=== PATIENT | female | born 1995 | race Caucasian/White ===

== ENCOUNTER 2016-09-04 19:42 | Emergency (ER) | payer MEDICAID, OTHER ==
[~2016-09-04] VITALS: Ht 162.6 cm; Wt 83.0 kg
[~2016-09-04 19:42] MED LIST: FER325 PO; PRENAT PO
[2016-09-04 19:51] VITALS: Ht 162.6 cm; Wt 83.0 kg
[2016-09-04] MEDS ORDERED: SOD CHLORIDE 0.9% 1,000 ML IV STA (20:28)
[2016-09-04] MEDS ORDERED: ONDANSETRON 4 MG INJ IV STA (20:28)
[2016-09-04 21:26] LABS: ALBUMIN 4.7 g/dl (3.3-4.9); POTASSIUM 3.9 mmol/L (3.5-5.1)
[2016-09-04 21:29] LABS: ALBUMIN/GLOBULIN RATIO 1.14; BILIRUBIN,INDIRECT 0.6 mg/dl (0-1.1); BILIRUBIN,TOTAL 0.6 mg/dl (0.2-1.3); CREATININE 0.52 mg/dl (0.44-1.00); TOTAL PROTEIN 8.8 g/dl (6.1-8.1)
[2016-09-04 21:30] LABS: CALCIUM 9.9 mg/dl (8.4-10.2)
[2016-09-04 21:38] LABS: BASOPHILS % 0.4 % (0.0-2.0); EOSINOPHILS % 0.3 % (0.0-7.0); HEMATOCRIT 43.1 % (37.0-47.0); HEMOGLOBIN 15.2 g/dl (12.0-16.0); LYMPHOCYTES # 1.6 10^3/ul (0.8-2.9); LYMPHOCYTES % 16.6 % (15.0-51.0); MEAN CORPUSCULAR HGB CONC 35.3 g/dl (32.0-37.0); MEAN CORPUSCULAR VOLUME 87.8 fl (82.0-101.0); MEAN PLATELET VOLUME 9.9 fl (7.4-10.4); MONOCYTE # 0.2 10^3/ul (0.3-0.9); MONOCYTES % 2.4 % (0.0-11.0); NEUTROPHIL # 7.7 10^3/ul (1.6-7.5); NEUTROPHILS % 80.3 % (39.0-77.0); PLATELET COUNT 260 10^3/UL (140-440); RED BLOOD COUNT 4.91 10^6/ul (4.20-5.40); RED CELL DISTRIBUTION WIDTH 12.5 % (11.5-14.5); UNCORRECTED WBC 9.5 10^3/ul (4.8-10.8); WHITE BLOOD COUNT 9.5 10^3/ul (4.8-10.8)
[2016-09-04 21:39] LABS: CONDITION 1
--- NOTE | 2016-09-04 21:48 | RADRPT ---
PROCEDURE: OB Ultrasound. CLINICAL INDICATION: Positive test. Vomiting. TECHNIQUE: Ultrasound of the pelvis was performed with transabdominal sonography in the axial and sagittal planes. COMPARISON: No prior study is available for comparison. FINDINGS: There is a single intrauterine gestational sac. pole and yolk sac are present. There is heart motion. heart rate is 152 beats per minute. [place]-rump length is 3.96 cm. Mean sac diameter is 3.86 cm. Menstrual age by ultrasound dates is 10 weeks 1 day. This indicates an expected date of delivery of 04/01/2017. The ovaries are not visualized. There is no other pelvic mass or free fluid. IMPRESSION: 1. Single live intrauterine gestation of 10 weeks 1 day menstrual age by ultrasound dates. 2. Expected date of delivery is 04/01/2017. RPTAT: QQ .Jamaal Castano MD, Date Time Electronically viewed and signed by .Jamaal Castano MD, on 09/04/2016 21:48 .R/
--- NOTE | 2016-09-04 21:51 | ERD ---
ER Documentation Chief Complaint Date/Time DATE: 09/04/16 TIME: 21:46 Chief Complaint n/v for past 2 days is 3 months denies any pain HPI 20-year-old female who presents to emergency department today complaining of nausea and vomiting throughout her but has been worse for the past day. Patient states she has tried Pedialyte and has been unable to keep fluid down. States she had been given Zofran by her doctor and took her last one yesterday. Patient denies any abdominal pain, fevers or chills. Denies any history of surgery. ROS All systems reviewed and are negative except as per history of present illness. Medications Home Meds Active Scripts Metoclopramide* (Reglan*) 10 Mg Tablet, 10 MG PO Q6 Y for NAUSEA AND/OR VOMITING , #20 TAB Prov:CIERRA MATUTE PA-C 09/04/16 Ondansetron Hcl* (Zofran*) 4 Mg Tablet, 4 MG PO Q6H for NAUSEA AND/OR VOMITING, #30 TAB Prov:CIERRA MATUTE PA-C 09/04/16 Reported Medications Ferrous Sulfate* (Ferrous Sulfate*) 325 Mg Tabec, 325 MG PO DAILY, TAB 12/11/15 Multivit/Min/Fol Ac/Iron/Pren* ( S*) 1 Tab Tab, 1 TAB PO DAILY, TAB 12/11/15 Allergies Allergies: Coded Allergies: fish derived (Verified Allergy, Severe, 01/09/16) THROAT CLOSES, HIVES No Known Drug Allergies (Verified Allergy, Unknown, 01/09/16) PMhx/Soc Medical and Surgical Hx: pt denies Medical Hx, pt denies Surgical Hx Hx Alcohol Use: No Hx Substance Use: No Hx Tobacco Use: No Smoking Status: Never smoker Physical Exam Vitals Vital Signs Date Time Temp Pulse Resp B/P Pulse Ox O2 Delivery O2 Flow Rate FiO2 09/04/16 19:51 98.6 111 18 158/82 98 Physical Exam Const: No acute distress Head: Atraumatic Eyes: Normal Conjunctiva ENT: Normal External Ears, Nose and Mouth. Neck: Full range of motion..~ No meningismus. Resp: Clear to auscultation bilaterally Cardio: Regular rate and rhythm, no murmurs Abd: Soft, non tender, non distended. Normal bowel sounds. Skin: No petechiae or rashes Back: No midline or flank tenderness Ext: No cyanosis, or edema Neur: Awake and alert Psych: Normal Mood and Affect Result Diagram: 09/04/16204909/04/162049 Results 24 hrs Laboratory Tests Test 09/04/16 20:50 09/04/16 21:45 Alanine Aminotransferase (ALT/SGPT) 18IU/L Albumin 4.7g/dl Albumin/Globulin Ratio 1.14 Alkaline Phosphatase 94IU/L Anion Gap 20 Aspartate Amino Transf (AST/SGOT) 20IU/L Basophils # 0.010^3/ul Basophils % 0.4% Beta HCG, Quantitative 05211.0mIU/ml Blood Urea Nitrogen 10mg/dl Calcium Level 9.9mg/dl Carbon Dioxide Level 24mmol/L Chloride Level 102mmol/L Creatinine 0.52mg/dl Direct Bilirubin 0.00mg/dl Eosinophils # 0.010^3/ul Eosinophils % 0.3% Globulin 4.10g/dl Glucose Level 94mg/dl Hematocrit 43.1% Hemoglobin 15.2g/dl Indirect Bilirubin 0.6mg/dl Lymphocytes # 1.610^3/ul Lymphocytes % 16.6% Mean Corpuscular Hemoglobin 31.0pg Mean Corpuscular Hemoglobin Concent 35.3g/dl Mean Corpuscular Volume 87.8fl Mean Platelet Volume 9.9fl Monocytes # 0.210^3/ul Monocytes % 2.4% Neutrophils # 7.710^3/ul Neutrophils % 80.3% Nucleated Red Blood Cells # 0.010^3/ul Nucleated Red Blood Cells % 0.0/100WBC Platelet Count 30058^3/UL Potassium Level 3.9mmol/L Red Blood Count 4.9110^6/ul Red Cell Distribution Width 12.5% Sodium Level 142mmol/L Total Bilirubin 0.6mg/dl Total Protein 8.8g/dl White Blood Count 9.510^3/ul Urine Bacteria FEW Urine Bilirubin 1+ Urine Clarity SLIGHTLY CLOUDY Urine Color YELLOW Urine Glucose NEGATIVE% Urine Hemoglobin NEGATIVE Urine Ictotest NEGATIVE Urine Ketones 3+ Urine Leukocyte Esterase NEGATIVE Urine Microscopic RBC 0-2/HPF Urine Microscopic WBC 0-2/HPF Urine Mucus MODERATE Urine Nitrite NEGATIVE Urine Specific [place] >=1.030 Urine Squamous Epithelial Cells FEW Urine Total Protein 1+ Urine Urobilinogen 0.2 E.U./dL Urine pH 6.0 Current Medications Medications (Trade) Dose Ordered Sig/Alicia Route PRN Reason Start Time Stop Time Status Last Admin Dose Admin Sodium Chloride (NS) 1,000 ml @ 1,000 mls/hr Q1H STAT IV 09/04/16 20:28 09/04/16 21:27 DC 09/04/16 21:07 Ondansetron HCl (Zofran Inj) 4 mg ONCE STAT IV 09/04/16 20:28 09/04/16 20:33 DC 09/04/16 20:48 Patient: ANGELICA LYON : 1995 Age: 21 Sex: F MR #: [id number] DOS: 09/04/16 0000 Ordering MD: CIERRA MATUTE PA-C Location: [facility] Room/Bed: PROCEDURE: OB Ultrasound. CLINICAL INDICATION: Positive test. Vomiting. TECHNIQUE: Ultrasound of the pelvis was performed with transabdominal sonography in the axial and sagittal planes. COMPARISON: No prior study is available for comparison. FINDINGS: There is a single intrauterine gestational sac. pole and yolk sac are present. There is heart motion. heart rate is 152 beats per minute. [place]-rump length is 3.96 cm. Mean sac diameter is 3.86 cm. Menstrual age by ultrasound dates is 10 weeks 1 day. This indicates an expected date of delivery of 04/01/2017. The ovaries are not visualized. There is no other pelvic mass or free fluid. IMPRESSION: 1. Single live intrauterine gestation of 10 weeks 1 day menstrual age by ultrasound dates. 2. Expected date of delivery is 04/01/2017. RPTAT: QQ .Jamaal Castano MD, MD Date Time Electronically viewed and signed by .Jamaal Castano MD, on 09/04/2016 21:48 .R/ CC: CIERRA MATUTE PA-C Procedures/[facility] This is a 21-year-old female who presents to the emergency department today complaining of persistent nausea and vomiting throughout her but that became worse yesterday. Patient had no abdominal pain on physical exam however given that the patient stated she was 3 months denies obtaining a complete OB workup. Laboratory work shows no auditory blood cell count. She is not anemic. Platelets are within normal limits. Electrolytes are within normal limits. Liver function is within normal limits. UA is negative for infection Beta Quant hCG 03641.0 RH status O+ Ultrasound shows a single live intrauterine gestation at 10 weeks and 1 day. heart rate is 152 bpm. There is a pole and yolk sac. There is no pelvic masses or free fluid. Patient is given a liter of fluids here in the emergency department as well as Zofran. And patient reported feeling significantly better and had not had any nausea since receiving the Zofran IV. We'll give the patient a prescription for both Zofran and Reglan if Zofran continued to not work for her at home. I do not feel the patient requires admission at this time and she was able to 3 cups of water while she was here in the emergency department. Patient's symptoms at this time is consistent with vomiting during . Lower suspicion for hyperemesis gravidarum. Patient has no abdominal pain on physical exam and low suspicion for any acute surgical abdomen. I do not feel that she requires further imaging or workup. Patient was asking to leave prior to receiving almost all of her fluids stating she felt much better. Patient was instructed to follow-up with Dr. Vann At this time the patient is stable for discharge and outpatient management. Patient should follow up with their PCP in the next 1-2 days. They may return to the emergency department sooner for any persistent or worsening of symptoms. Patient understood and agreed with the plan. Departure Diagnosis: Primary Impression: Vomiting during Condition: CIERRA Guillory PA-C Sep 04, 2016 21:51
[2016-09-04 22:00] LABS: ADD UMIC YES; URINE BILIRUBIN (Dip) 1+ (NEGATIVE); URINE BLOOD (Dip) NEGATIVE (NEGATIVE); URINE COLOR YELLOW (YELLOW); URINE GLUCOSE (Dip) NEGATIVE (NEGATIVE); URINE KETONES (Dip) 3+ (NEGATIVE); URINE LEUKOCYTE ESTERASE (Dip) NEGATIVE (NEGATIVE); URINE NITRITE (Dip) NEGATIVE (NEGATIVE); URINE TOTAL PROTEIN (Dip) 1+ (NEGATIVE); URINE UROBILINOGEN (Dip) 0.2 E.U./dL (0.1-1.0)
[2016-09-04 22:21] LABS: BACTERIA,URINE FEW; ICTOTEST NEGATIVE (NEGATIVE); MUCUS,URINE MODERATE; SQUAMOUS EPITHELIAL CELL,UR FEW; URINE RBCS 0-2 /HPF (0)
[2016-09-04] MEDS ORDERED: ONDA4TAB8 PO (23:05)
[2016-09-04] MEDS ORDERED: METO10TA92 PO (23:06)
[2016-09-04 23:30] VITALS: BP 126/72; PULSE 85; RESP 18; TEMP 96.3
== END 2016-09-04 23:30 | disposition home or self-care (01) ==
LOC: FTE 19:42
DX: O21.9 Vomiting of pregnancy, unspecified (principal); Z3A.10 10 weeks gestation of pregnancy
CPT/HCPCS: 76805; 80053; 81001; 84702; 85025; 86900; 86901; J2405; J7030; 36415; 81003; 96374

== ENCOUNTER 2016-11-18 22:15 | Outpatient (CLI) | payer OTHER ==
[~2016-11-18] VITALS: Ht 165.1 cm; Wt 86.8 kg
[~2016-11-18 22:15] MED LIST changes: +METO10TA92 PO; +ONDA4TAB8 PO
[2016-11-18 22:21] VITALS: Ht 165.1 cm; Wt 86.8 kg
[2016-11-18 22:22] VITALS: BP 115/71; PULSE 98; RESP 18
--- NOTE | 2016-11-18 22:48 | PN ---
Date/Time of Note Date/Time of Note DATE: 11/18/16 TIME: 22:43 OB Subjective Subjective Subjective 21 yo P1 @ 21 wks c/o constant lower abdominal cramping and does not feel baby moving OB Objective Objective Objective 115/71, 98, 18 Abdomen- gravid, n/t FH- pos Abdomen: WNL OB Assessment/Plan Other Assessment: patient likely has round ligament pain Other plan: sono to assess viability, fluid, and cervical length If all nml, d/c home reassured that movements are not always regular before 28 wks tylenol for presumed round ligament pain PORSHA REYNAGA MD Nov 18, 2016 22:48
[2016-11-18] MEDS ORDERED: ACETAMINOPHEN 500 MG TAB PO ONE (23:03)
[2016-11-18] MEDS ORDERED: LACTATED RINGER'S 1,000 ML IV STA (23:25)
--- NOTE | 2016-11-18 23:43 | RADRPT ---
PROCEDURE: Obstetrical ultrasound. CLINICAL INDICATION: , evaluation. Pelvic pain. TECHNIQUE: Transabdominal and transvaginal sonographic images of the pelvis are obtained. COMPARISON: 11/08/2016, 09/04/2016 FINDINGS: Single intrauterine gestation. There is a cephalic presentation. Measurements were made in order to determine age. The results are as follows: BPD = 5.06 cm HC = 18.46 cm AC = 15.36 cm FL = 3.68 cm Biometry is concordant. Deepest vertical fluid pocket 6.4 cm. Heart rate = 154 beats per minute The placenta is fundal - posterior. There is no evidence for an abruption or placenta previa. Ovaries are not visualized. Cervix is closed and measures 4.6 cm as visualized transvaginally. IMPRESSION: Single intrauterine gestation of approximately 21 weeks 1 days by ultrasound criteria. [place] estimated weight = 396 g; 40 percentile for gestational age of 21 weeks 1 days. RPTAT: AADD .Chai Cunningham MD, MD Date Time Electronically viewed and signed by .Chai Cunningham MD, on 11/18/2016 23:42 .B/
--- NOTE | 2016-11-19 01:27 | TRIAGE ---
OB Triage Datetime Report Generated by CPN: 11/19/2016 01:27 Datetime: 11/19/2016 01:18 Stage of : OB Triage Labor Evaluation Frequency: NONE Monitor Mode: External Pain Assessment Pain Scale: 0 Pain Presence: None/Denies Pain Goal: 3 Datetime: 11/19/2016 01:06 Stage of : OB Triage Datetime: 11/19/2016 00:40 Contraction Comments: TOCO READJUSTED. Datetime: 11/19/2016 00:30 Stage of : OB Triage Maternal Assessment Level of Consciousness: Fully Conscious Monitor Mode: External Contraction Comments: TOCO DID NOT PICKING UP UCs DUE TO PT HIGH-FOWL POSITION. Datetime: 11/19/2016 00:19 Stage of : OB Triage Datetime: 11/18/2016 23:38 Stage of : OB Triage Datetime: 11/18/2016 23:24 Stage of : OB Triage Datetime: 11/18/2016 23:00 Stage of : OB Triage Labor Evaluation Frequency: 2-4 Monitor Mode: External Duration (sec)2399: 30-50 Quality: Mild Resting Tone Am[place]: Relaxed Datetime: 11/18/2016 22:35 Stage of : OB Triage Datetime: 11/18/2016 22:27 Stage of : OB Triage Maternal Assessment Level of Consciousness: Fully Conscious DTR's/Clonus: DTRs 2+; No Clonus Headache: Denies Blurred Vision: No Respiratory Effort: Unlabored; Regular Rhythm; Equal Expansion Breath Sounds, Left: Clear and Equal Breath Sounds, Right: Clear and Equal Nausea/Vomiting: Denies RUQ Epigastric Pain: Denies Lower Extremities Edema: None Upper Extremities Edema: None Facial Edema: None Temperature Route: Oral Fall Risk Assessment History of Falling: (0) No Secondary Diagnosis: (0) No Ambulatory Aid: (0) Bedrest/Nurse Assist IV Therapy: (0) No Gait: (0) Normal/Bedrest/Immobile Mental Status: (0) Oriented to Own Ability Fall Score: 0 Fall Risk Score Definition: No Risk: No action required Labor Evaluation Frequency: NONE Monitor Mode: External Heart Rate FHR Baseline Rate: 160 Monitor Mode: External US Variability: Moderate 6-25 bpm Accelerations: 10X10 Decelerations: None Category: Category I Pain Assessment Pain Scale: 7 Pain Presence: Constant Pain Type: Contraction; Pressure Pain Location: Abdomen Pain Goal: 3 Pain Relief Measures: Comfort Measures Datetime: 11/18/2016 22:25 EGA: 21.1 Datetime: 11/18/2016 22:23 Time of Arrival: 11/18/2016 22:10 Arrived By: Wheelchair Arrived From: Home Chief Complaint: PT C/O DECREASED MOVEMENT, AND ABDOMEN PAIN Movement: Decreased Contractions: Occasional Time Contractions Began: 11/18/2016 13:00 Rupture of Membranes: Denies Vaginal Bleeding: None Vaginal Discharge: Denies Recent Sexual Intercouse: Denies Abdominal Trauma: Not Applicable Patient Complaints: Contractions Time Provider Notified: 11/18/2016 22:00 Provider Notified: DR REYNAGA Initial Plan: INITIAL PHYSICAL ASSESSMENT, TOCO AND EFM APPLIED
== END 2016-11-19 01:10 | disposition home or self-care (01) ==
LOC: OBT 22:15 → L-D 22:17 → OBT 11-19 01:10
PROVIDERS: ATTEND Obstetrics & Gynecology
DX: O36.8120 Decreased fetal movements, second trimester, not applicable or unspecified (principal); O26.892 Other specified pregnancy related conditions, second trimester; R25.2 Cramp and spasm; Z3A.21 21 weeks gestation of pregnancy
CPT/HCPCS: 59025; 76815; 76817; 96360; J7120; Z7500; Z7610; G0463

== ENCOUNTER 2017-03-21 07:54 | Inpatient (IN) | payer OTHER ==
[~2017-03-21] VITALS: Ht 162.6 cm; Wt 102.0 kg
[2017-03-21 08:17] VITALS: Ht 162.6 cm; Wt 102.0 kg
[2017-03-21 08:18] VITALS: BP 118/72; PULSE 82
--- NOTE | 2017-03-21 10:41 | RADRPT ---
PROCEDURE: US OB biophysical profile. CLINICAL INDICATION: decreased movements, labor pain TECHNIQUE: Multiple sonographic images of the pelvis were obtained. The images were reviewed on a PACS workstation. COMPARISON: No prior studies are available for comparison. FINDINGS: There is a single viable intrauterine gestation. Cardiac activity is present with 126 beats per min [place]. There is a vertex presentation. The placenta is posterior. There is no evidence of placental abruption. There is a normal amount of amniotic fluid with an ANDI = 10.4 cm. Biophysical profile: movement 2/2 tone 2/2. breathing 2/2 ANDI 2/2 Total 03/14 RPTAT: AA . IMPRESSION: Normal biophysical profile. . .Roshan Morales MD, Date Time Electronically viewed and signed by .Roshan Morales MD, MD on 03/21/2017 10:41 .S/
[2017-03-21] MEDS ORDERED: METHYLERGONOVINE 0.2 MG INJ IM PRN (13:00)
[2017-03-21] MEDS ORDERED: BUTORPHANOL 2 MG INJ IV PRN ×2 (13:00)
[2017-03-21] MEDS ORDERED: CARBOPROST 250 MCG INJ IM PRN (13:00)
[2017-03-21] MEDS ORDERED: OXYTOCIN 30 UNITS/LR 500 ML IV PRN (13:00)
[2017-03-21] MEDS ORDERED: LIDOCAINE 1% (MPF) 30 ML INJ INJ PRN (13:00)
[2017-03-21] MEDS ORDERED: MISOPROSTOL 200 MCG TAB PR PRN (13:00)
[2017-03-21] MEDS ORDERED: LACTATED RINGER'S 1,000 ML IV PRN (13:00)
--- NOTE | 2017-03-21 13:02 | PN ---
Triage Information Date/Time Reason for visit: admit to l&d Weeks of Gestation 36hlve2 days /Para Diabetes: none Hypertention: none Objective Vital Signs Date Time Temp Pulse Resp B/P Pulse Ox O2 Delivery O2 Flow Rate FiO2 03/21/17 08:18 98.2 82 118/72 Heart Rate: 130's Contractions: >10 Minutes Apart Exam cx closed vertex -2 Assessment/Plan admit for labor augmentation DONALDO MARTINEZ MD Mar 21, 2017 12:44
--- NOTE | 2017-03-21 13:08 | HP ---
Date/Time of Note Date/Time of Note DATE: 03/21/17 TIME: 13:03 OB - History Hx of Present Free Text/Dictation 22 years old female EDC March 25 admitted to the hospital through triage unit with chief complaint of contraction every 5 minutes pelvic examination on admission cervix closed 50% effaced vertex at -1 -2 station patient declined going home to wait for further progress therefore she would be augmented during labor Chief Complaint: Labor contraction Estimated Due Date: Mar 25, 2017 : 2 Para: 1 Care: Good Care Ultrasounds: Normal mid trimester US Obstetrical Complications: None, Other (Low SAIGE-A) Medical Complications: None Past Family/Social History * Past Medical, Surgical, Family and Obstetric Histories reviewed from chart. Rubella: immune RPR/VDRL: Negative GBS Status: Negative HBsAG: Negative OB Admission Exam Vital Signs Vital Signs Vital Signs Date Time Temp Pulse Resp B/P Pulse Ox O2 Delivery O2 Flow Rate FiO2 03/21/17 08:18 98.2 82 118/72 Physical Exam HEENT: WNL Heart: Rhythm Normal Lungs: Clear, Equal Abdomen: WNL Extremities: Normal Reflexes: Normal Cervical Dilatation: Fingertip Effacement: 50% Station: -2 Membranes: Intact Accelerations: Accelerations Present Decelerations: No Decelerations Varibility: Moderate Contractions on Admission: < 5 Minutes Apart Intensity: Moderate DONALDO MARTINEZ MD Mar 21, 2017 13:08
--- NOTE | 2017-03-21 13:51 | TRIAGE ---
OB Triage Datetime Report Generated by CPN: 03/21/2017 13:50 Datetime: 03/21/2017 12:23 Stage of : OB Triage Datetime: 03/21/2017 11:49 Exam By: S LAUYNE Datetime: 03/21/2017 11:14 Labor Evaluation Frequency: 6-8 Monitor Mode: External Duration (sec)2399: 50-60 Quality: Mild Pattern: Normal: <= 5 Contractions in 10 Minutes Resting Tone [place]: Relaxed Heart Rate FHR Baseline Rate: 125 Monitor Mode: External US Variability: Moderate 6-25 bpm Accelerations: 10X10 Decelerations: None Category: Category I Pain Assessment Pain Scale: 5 Pain Presence: Intermittent Pain Type: Cramping; Contraction Pain Location: Abdomen Pain Goal: 3 Pain Relief Measures: Comfort Measures Datetime: 03/21/2017 10:13 Labor Evaluation Frequency: 6-7 Monitor Mode: External Duration (sec)2399: 50-60 Quality: Mild Pattern: Normal: <= 5 Contractions in 10 Minutes Resting Tone [place]: Relaxed Heart Rate FHR Baseline Rate: 125 Monitor Mode: External US Variability: Moderate 6-25 bpm Accelerations: 10X10 Decelerations: None Category: Category I Pain Assessment Pain Scale: 8 Pain Presence: Intermittent Pain Type: Cramping Pain Location: Abdomen Pain Goal: 3 Pain Relief Measures: Comfort Measures Datetime: 03/21/2017 09:50 Stage of : OB Triage Datetime: 03/21/2017 09:16 Labor Evaluation Frequency: 6-7 Monitor Mode: External Duration (sec)2399: 50-70 Quality: Mild Pattern: Normal: <= 5 Contractions in 10 Minutes Resting Tone [place]: Relaxed Heart Rate FHR Baseline Rate: 125 Monitor Mode: External US Variability: Moderate 6-25 bpm Accelerations: 10X10 Decelerations: None Category: Category I Pain Assessment Pain Scale: 8 Pain Presence: Intermittent Pain Type: Cramping Pain Location: Abdomen Pain Goal: 3 Pain Relief Measures: Comfort Measures Datetime: 03/21/2017 08:55 Vaginal Exam Dilatation (cms): 0.0 Effacement (%): 50 Station: -2 Exam By: Marcello SMITH Vaginal Bleeding: None Cervix, Consistency: Soft Cervix, Position: Posterior Presentation 'A': Cephalic Datetime: 03/21/2017 08:14 Stage of : OB Triage Assessment Type: Triage Maternal Assessment Level of Consciousness: Fully Conscious DTR's/Clonus: DTRs 2+; No Clonus Headache: Denies Blurred Vision: No Respiratory Effort: Unlabored; Regular Rhythm; Equal Expansion Breath Sounds, Left: Clear and Equal Breath Sounds, Right: Clear and Equal Nausea/Vomiting: Denies RUQ Epigastric Pain: Denies Facial Edema: None Temperature Route: Axillary Fall Risk Assessment History of Falling: (0) No Secondary Diagnosis: (0) No Ambulatory Aid: (0) Bedrest/Nurse Assist IV Therapy: (0) No Gait: (0) Normal/Bedrest/Immobile Mental Status: (0) Oriented to Own Ability Fall Score: 0 Fall Risk Score Definition: No Risk: No action required Labor Evaluation Frequency: 0 Monitor Mode: External Pattern: Normal: <= 5 Contractions in 10 Minutes Resting Tone [place]: Relaxed Heart Rate FHR Baseline Rate: 130 Monitor Mode: External US Variability: Moderate 6-25 bpm Accelerations: None Decelerations: None Category: Category II Pain Assessment Pain Scale: 8 Pain Presence: Intermittent Pain Type: Cramping; Contraction Pain Location: Abdomen Pain Goal: 3 Pain Relief Measures: Comfort Measures Datetime: 11/18/2016 22:27 Fall Score: 0 Fall Risk Score Definition: No Risk: No action required Datetime: 11/18/2016 22:25 Time of Arrival: 03/21/2017 07:50 EGA: 39.3 Arrived By: Ambulatory Arrived From: Home Chief Complaint: C/O UC'S SINCE 4 AM, DENIES BLEEDING OR LEAKING Movement: Present Contractions: Regular Contractions: Q5 Rupture of Membranes: Denies Vaginal Bleeding: None Vaginal Discharge: Denies Recent Sexual Intercouse: Denies Abdominal Trauma: Not Applicable Patient Complaints: Contractions; Cramping Time Provider Notified: 03/21/2017 09:50 Provider Notified: JUAN Initial Plan: MONITOR, VE, BPP, OBS X 2 HOURS
[2017-03-21 15:33] LABS: BASOPHILS % 0.3 % (0.0-2.0); EOSINOPHILS % 0.5 % (0.0-7.0); HEMATOCRIT 34.6 % (37.0-47.0); HEMOGLOBIN 11.5 g/dl (12.0-16.0); LYMPHOCYTES % 24.9 % (15.0-51.0); MEAN CORPUSCULAR HEMOGLOBIN 30.4 pg (29.0-33.0); MEAN CORPUSCULAR HGB CONC 33.2 g/dl (32.0-37.0); MEAN CORPUSCULAR VOLUME 91.5 fl (82.0-101.0); MEAN PLATELET VOLUME 11.6 fl (7.4-10.4); MONOCYTE # 0.5 10^3/ul (0.3-0.9); MONOCYTES % 5.9 % (0.0-11.0); NEUTROPHILS % 68.1 % (39.0-77.0); PLATELET COUNT 164 10^3/UL (140-415); RED BLOOD COUNT 3.78 10^6/ul (4.20-5.40); RED CELL DISTRIBUTION WIDTH 13.6 % (11.5-14.5); WHITE BLOOD COUNT 7.9 10^3/ul (4.8-10.8)
[2017-03-21] MEDS: LACTATED RINGER'S 1,000 ML IV SCH ×2 (15:38→22:55)
[2017-03-21 15:53] LABS: INR 1.03; PROTIME 13.5 Sec (12.2-14.2); PT RATIO 1.1
[2017-03-21 15:54] LABS: PARTIAL THROMBOPLASTIN TIME 29.2 Sec (25.0-35.0)
[2017-03-21] MEDS ORDERED: DINOPROSTONE 10 MG VAG SUPP VAG ONE (20:30)
--- NOTE | 2017-03-21 21:34 | RADRPT ---
PROCEDURE: US OB. CLINICAL INDICATION: Size and dates TECHNIQUE: Multiple sonographic images of the pelvis and gravid uterus were obtained. The images were reviewed on a PACS workstation. COMPARISON: 03/21/2017 FINDINGS: There is a single viable intrauterine gestation. Cardiac activity is present with 140 beats per min [place]. There is a vertex presentation. The placenta is fundal. There is no evidence for an abruption or placenta previa. Measurements were made in order to determine age. The results are as follows: BPD =8.9 cm HC =33.3 cm AC =35.1 cm FL =6.9 cm Estimated gestational age of approximately 37 weeks and 2 days based on ultrasound measurements. Clinical age: 39 weeks and 3 days. The estimated date of delivery is 04/09/2017, based on ultrasound measurements. The EFW = 3306 g, 32%, based on LMP age. RPTAT: AA IMPRESSION: Single viable intrauterine gestation of approximately 37 weeks and 2 days based on ultrasound measu rements. .Roshan Morales MD, Date Time Electronically viewed and signed by .Roshan Morales MD, on 03/21/2017 21:34 .S/
[2017-03-22] MEDS: LACTATED RINGER'S 1,000 ML IV SCH ×2 (07:04→17:02)
[2017-03-22] MEDS ORDERED: LACTATED RINGER'S 1,000 ML IV ONE (10:43)
[2017-03-22] MEDS ORDERED: CITRIC ACID/NA CITRATE 30 ML CUP ONE (10:52)
[2017-03-22] MEDS ORDERED: ONDANSETRON 4 MG INJ ONE (10:52)
[2017-03-22] MEDS ORDERED: FENTAnyl 2MCG/ML-ROPIV 0.2% 100 ML ONE (10:53)
[2017-03-22] MEDS ORDERED: ONDANSETRON 4 MG INJ IV ONE (11:00)
[2017-03-22] MEDS ORDERED: TRIMETHOBENZAMIDE 100 MG/ML VIAL IM PRN (11:00)
[2017-03-22] MEDS ORDERED: DIPHENHYDRAMINE 50 MG INJ IV PRN (11:00)
[2017-03-22] MEDS ORDERED: morphine 4 MG/ML VIAL IV PRN ×2 (11:00→21:00)
[2017-03-22] MEDS ORDERED: morphine 2 MG INJ IV PRN (11:00)
[2017-03-22] MEDS ORDERED: NALBUPHINE HCL (10 MG/1 ML) INJ IV PRN (11:00)
[2017-03-22] MEDS ORDERED: NALOXONE (0.4 MG/ML) INJ IV PRN (11:00)
[2017-03-22] MEDS ORDERED: ONDANSETRON 4 MG INJ IV PRN ×2 (11:00→21:00)
[2017-03-22] MEDS ORDERED: CITRIC ACID/NA CITRATE 30 ML CUP PO ONE (11:00)
[2017-03-22] MEDS ORDERED: KETOROLAC 30 MG INJ IV PRN (11:00)
[2017-03-22] MEDS ORDERED: FENTAnyl 2MCG/ML-ROPIV 0.2% 100 ML BAG EPI SCH (11:00)
[2017-03-22] MEDS: FENTAnyl 2MCG/ML-ROPIV 0.2% 100 ML BAG EPI SCH ×2 (12:38→14:53)
[2017-03-22] MEDS ORDERED: OXYTOCIN 30 UNITS/LR 500 ML IV SCH ×3 (13:00→21:30)
--- NOTE | 2017-03-22 20:29 | LDN ---
Date/Time of Note Date/Time of Note DATE: 03/22/17 TIME: 20:21 Delivery Summary 03/22/2017 Placenta Delivered: Manually Meconium: none Episiotomy: No Perineal laceration: 1 Laceration repair: first degree left labial laceration, repaired using 3-0 vicryl Anesthesia type: Epidural Estimated blood loss: 200 Sponge & Needle done & correct: Yes All needle counts correct: Yes Any foreign bodies felt in the: No Problems: Infant Delivery Information Sex Sex: female Apgars 1 Minute: 9 5 Minute: 9 Suctioning Nose & mouth suctioned at hernan: Yes Delee suction performed: Yes Umbilical Cord Umbilical cord with: 3 Vessels Cord presentations: no nuchal cord Cord Blood was obtained: Yes Mother & Baby Disposition Disposition Cord avulsed during removal of placenta. At this time, manual removal of placenta performed . Patient was given 2 Grams of ancef, Placenta removed completely. Placenta examined after removal, no concern for retained placenta noted. Hemostasis was complete at the end of delivery. needle count and gauze counts were correct x 2. Mom & Baby to Maternity; Good: Yes FLORENTIN ZAMBRANO MD Mar 22, 2017 20:29
[2017-03-22] MEDS ORDERED: CEFAZOLIN 2 GM/50 ML (PMX) 50 ML IVPB ONE (20:30)
[2017-03-22] MEDS ORDERED: LACTATED RINGER'S 1,000 ML IV* SCH (20:31)
[2017-03-22] MEDS ORDERED: OXYTOCIN 30 UNITS/LR 500 ML IV PRN (21:00)
[2017-03-22] MEDS: SENNA/DOCUSATE NA (8.6MG/50MG) TAB PO SCH (21:00)
[2017-03-22] MEDS ORDERED: METHYLERGONOVINE 0.2 MG INJ IM PRN (21:00)
[2017-03-22] MEDS: FERROUS SULFATE (EC) 325 MG TAB PO SCH (21:00)
[2017-03-22] MEDS ORDERED: MISOPROSTOL 200 MCG TAB PR PRN (21:00)
[2017-03-22] MEDS ORDERED: LANOLIN 7 GM TUBE TOP PRN (21:00)
[2017-03-22] MEDS ORDERED: ACETAMINOPHEN 325 MG TAB PO PRN (21:00)
[2017-03-22] MEDS ORDERED: DIPHENHYDRAMINE 25 MG CAP PO PRN (21:00)
[2017-03-22] MEDS ORDERED: METOCLOPRAMIDE 10 MG TAB PO PRN (21:00)
[2017-03-22] MEDS ORDERED: CARBOPROST 250 MCG INJ IM PRN (21:00)
[2017-03-22] MEDS: ONDANSETRON 4 MG TAB PO SCH (21:00)
[2017-03-22] MEDS ORDERED: ZOLPIDEM 5 MG TAB PO PRN (21:00)
[2017-03-22 22:45] VITALS: BP 134/72; PULSE 81; RESP 18
[2017-03-22] MEDS: IBUPROFEN 600 MG TAB PO SCH (23:46)
[2017-03-22] MEDS: WITCH HAZEL/GLYCERIN PAD PR PRN (23:47)
[2017-03-23] MEDS: ONDANSETRON 4 MG TAB PO SCH ×4 (03:00→20:49)
[2017-03-23 04:15] VITALS: BP 115/60; PULSE 82; RESP 18
[2017-03-23] MEDS: IBUPROFEN 600 MG TAB PO SCH ×5 (05:47→23:57)
[2017-03-23] MEDS: FERROUS SULFATE (EC) 325 MG TAB PO SCH (09:24)
[2017-03-23] MEDS: PRENATAL VITAMIN PO SCH (09:24)
[2017-03-23] MEDS: SENNA/DOCUSATE NA (8.6MG/50MG) TAB PO SCH ×2 (09:24→20:47)
[2017-03-23 09:35] VITALS: BP 113/78; RESP 14
[2017-03-23 10:01] LABS: BASOPHILS % 0.3 % (0.0-2.0); EOSINOPHILS # 0.1 10^3/ul (0.0-0.5); EOSINOPHILS % 0.4 % (0.0-7.0); HEMOGLOBIN 12.3 g/dl (12.0-16.0); LYMPHOCYTES # 1.9 10^3/ul (0.8-2.9); LYMPHOCYTES % 16.9 % (15.0-51.0); MEAN CORPUSCULAR HGB CONC 32.4 g/dl (32.0-37.0); MEAN CORPUSCULAR VOLUME 92.7 fl (82.0-101.0); MONOCYTE # 0.9 10^3/ul (0.3-0.9); MONOCYTES % 7.9 % (0.0-11.0); NEUTROPHILS % 74.1 % (39.0-77.0); PLATELET COUNT 163 10^3/UL (140-415); RED CELL DISTRIBUTION WIDTH 13.5 % (11.5-14.5); WHITE BLOOD COUNT 11.2 10^3/ul (4.8-10.8)
--- NOTE | 2017-03-23 10:11 | PN ---
Date/Time of Note Date/Time of Note DATE: 03/23/17 TIME: 10:09 OB Subjective Subjective Subjective March 23, 2017 Post vaginal delivery day 1 Doing Well Afebrile Ambulatory Chest Clear Breasts are soft , Nipples are intact Abdomen is soft Fundus is firm Moderate amount of lochia No calf tenderness No ankle edema Laboratory Tests Test 03/23/17 09:35 White Blood Count 11.210^3/ul Red Blood Count 4.1010^6/ul Hemoglobin 12.3g/dl Hematocrit 38.0% Mean Corpuscular Volume 92.7fl Mean Corpuscular Hemoglobin 30.0pg Mean Corpuscular Hemoglobin Concent 32.4g/dl Red Cell Distribution Width 13.5% Platelet Count 84303^3/UL Mean Platelet Volume 12.0fl Neutrophils % 74.1% Lymphocytes % 16.9% Monocytes % 7.9% Eosinophils % 0.4% Basophils % 0.3% Nucleated Red Blood Cells % 0.0/100WBC Neutrophils # (Manual) 810^3/ul Lymphocytes # 1.910^3/ul Monocytes # 0.910^3/ul Eosinophils # 0.110^3/ul Basophils # 0.010^3/ul Nucleated Red Blood Cells # 0.010^3/ul Current Medications Medications (Trade) Dose Ordered Sig/Alicia Route PRN Reason Start Time Stop Time Status Last Admin Dose Admin Lactated Ringer's (Lr) 1,000 ml @ 125 mls/hr Q8H IV 03/21/17 12:47 03/22/17 20:35 DC 03/22/17 17:02 Butorphanol Tartrate (Stadol) 1 mg Q2H PRN IV PAIN 03/21/17 13:00 03/22/17 20:35 DC Butorphanol Tartrate (Stadol) 2 mg Q2H PRN IV PAIN 03/21/17 13:00 03/22/17 20:35 DC 03/22/17 08:40 Lidocaine 30 ml 30 ml ONCE PRN INJ EPISIOTOMY/TEARING 03/21/17 13:00 03/22/17 20:35 DC Lactated Ringer's 1,000 ml @ 2,000 mls/hr Q30M PRN IV PRE-EPIDURAL BOLUS 03/21/17 13:00 03/22/17 20:35 DC Oxytocin/Lactated Ringer's 500 ml @ 0 mls/hr ONCE PRN IV For Hemorrhage Management 03/21/17 13:00 03/22/17 20:35 DC Methylergonovine Maleate (Methergine) 0.2 mg ONCE PRN IM VAGINAL BLEEDING 03/21/17 13:00 03/22/17 20:35 DC Carboprost Tromethamine (Hemabate) 250 mcg ONCE PRN IM VAGINAL BLEEDING 03/21/17 13:00 03/22/17 20:35 DC Misoprostol (Cytotec) 1,000 mcg ONCE PRN [place] VAGINAL BLEEDING 03/21/17 13:00 03/22/17 20:35 DC Dinoprostone 10 mg 10 mg ONCE ONCE VAG 03/21/17 20:30 03/21/17 20:31 DC 03/21/17 20:40 Lactated Ringer's (Lr) 1,000 ml @ 1,000 mls/hr Q1H ONCE IV 03/22/17 10:43 03/22/17 11:42 DC 03/22/17 10:59 Ondansetron HCl (Zofran Inj) 4 mg pre-procedure ONCE IV 03/22/17 11:00 03/22/17 11:01 DC 03/22/17 10:59 Citric Acid/ Sodium Citrate (Bicitra) 30 ml PRE-OP ONCE PO 03/22/17 11:00 03/22/17 11:01 DC 03/22/17 10:59 Naloxone HCl (Narcan) 0.1 mg Q2M PRN IV FOR RESP RATE 8 OR LESS 03/22/17 11:00 03/22/17 20:34 DC Ketorolac Tromethamine (Toradol) 30 mg Q6H PRN IV PAIN 03/22/17 11:00 03/22/17 20:34 DC Morphine Sulfate (morphine) 2 mg Q3H PRN IV PAIN LEVEL 1-5 03/22/17 11:00 03/22/17 20:34 DC Morphine Sulfate (morphine) 4 mg Q3H PRN IV PAIN LEVEL 6-10 03/22/17 11:00 03/22/17 20:34 DC Diphenhydramine HCl (Benadryl) 25 mg Q6H PRN IV ITCHING 03/22/17 11:00 03/22/17 20:34 DC Nalbuphine HCl (Nubain) 5 mg ONCE PRN IV ITCHING 03/22/17 11:00 03/22/17 20:34 DC Ondansetron HCl (Zofran Inj) 4 mg Q6H PRN IV NAUSEA AND/OR VOMITING 03/22/17 11:00 03/22/17 20:34 DC Trimethobenzamide HCl (Tigan) 200 mg Q6H PRN IM NAUSEA AND/OR VOMITING 03/22/17 11:00 03/22/17 20:34 DC Fentanyl/ Ropivacaine 100 ml EPIDURAL INFUSION EPI 03/22/17 11:00 03/22/17 15:55 DC 03/22/17 14:53 Citric Acid/ Sodium Citrate (Bicitra) 30 ml STK-MED ONCE .ROUTE 03/22/17 10:52 03/22/17 10:53 DC Ondansetron HCl 4 mg 4 mg STK-MED ONCE .ROUTE 03/22/17 10:52 03/22/17 10:53 DC Fentanyl/ Ropivacaine 100 ml @ ud STK-MED ONCE .ROUTE 03/22/17 10:53 03/22/17 10:54 DC Oxytocin/Lactated Ringer's 500 ml @ 0 mls/hr Q0M IV 03/22/17 13:00 03/22/17 20:34 DC Fentanyl/ Ropivacaine 100 ml 100 ml EPIDURAL INFUSION EPI 03/22/17 11:00 03/22/17 20:34 DC Cefazolin Sodium/ Dextrose 50 ml @ 100 mls/hr ONCE ONCE IVPB 03/22/17 20:30 03/22/17 20:34 DC 03/22/17 20:29 Oxytocin/Lactated Ringer's 500 ml @ 125 mls/hr Q4H IV 03/22/17 20:30 03/22/17 20:34 DC Lactated Ringer's (Lr) 1,000 ml @ 125 mls/hr Q8H IV* 03/22/17 20:31 03/23/17 07:44 DC Morphine Sulfate (morphine) 1 mg Q3 PRN IV PAIN LEVEL 6-10 03/22/17 21:00 Ibuprofen (Motrin) 600 mg Q6 PO 03/22/17 21:00 03/23/17 05:47 Ondansetron HCl (Zofran Inj) 4 mg Q6H PRN IV NAUSEA AND/OR VOMITING 03/22/17 21:00 Diphenhydramine HCl (Benadryl) 25 mg Q6H PRN PO PRURITUS 03/22/17 21:00 Zolpidem Tartrate (Ambien) 5 mg QHS PRN PO INSOMNIA 03/22/17 21:00 Senna/Docusate Sodium (Senokot-S) 1 tab BID PO 03/22/17 21:00 03/23/17 09:24 Witch Nadja/ Glycerin (Tucks Pads) 1 pad BEDSIDE MEDICATION PRN AK HEMORRHOID/EPISIOTMY PAIN 03/22/17 21:00 03/22/17 23:47 Lanolin (Nei-P-Nirswe) 1 applic BEDSIDE MEDICATION PRN TOP BEDSIDE FOR ALISON TO NIPPLES 03/22/17 21:00 03/22/17 23:47 Acetaminophen 650 mg 650 mg Q4H PRN PO ELEVATED TEMPERATURE 03/22/17 21:00 Oxytocin/Lactated Ringer's 500 ml @ 0 mls/hr ONCE PRN IV For Hemorrhage Management 03/22/17 21:00 Methylergonovine Maleate (Methergine) 0.2 mg ONCE PRN IM VAGINAL BLEEDING 03/22/17 21:00 Carboprost Tromethamine (Hemabate) 250 mcg ONCE PRN IM VAGINAL BLEEDING 03/22/17 21:00 Misoprostol (Cytotec) 1,000 mcg ONCE PRN [place] VAGINAL BLEEDING 03/22/17 21:00 Ferrous Sulfate (Ferrous Sulfate (Ec)) 325 mg DAILY PO 03/22/17 21:00 03/23/17 09:24 Metoclopramide HCl (Reglan) 10 mg Q6 PRN PO NAUSEA AND/OR VOMITING 03/22/17 21:00 Prenat Multivit/ Demurrage Clerk/Iron/Folic Ac () 1 tab DAILY PO 03/23/17 09:00 03/23/17 09:24 Ondansetron HCl 4 mg 4 mg Q6H PO 03/22/17 21:00 Oxytocin/Lactated Ringer's 500 ml @ 125 mls/hr Q4H IV 03/22/17 21:30 03/23/17 05:42 DC 03/22/17 21:58 New born is doing well, Breast feeding Perineum is healing well BYRON CADET MD Mar 23, 2017 10:11
[2017-03-23 12:00] VITALS: BP 115/70; PULSE 75; RESP 15
[2017-03-23 15:20] VITALS: BP 115/70; PULSE 75; RESP 15
[2017-03-23 16:00] VITALS: BP 112/69; PULSE 73; RESP 15
[2017-03-23] MEDS: WITCH HAZEL/GLYCERIN PAD PR PRN (16:18)
[2017-03-23 21:00] VITALS: BP 128/73; PULSE 70; RESP 18
[2017-03-24] MEDS: ONDANSETRON 4 MG TAB PO SCH ×2 (03:00→09:00)
[2017-03-24 03:59] VITALS: BP 119/65; PULSE 71; RESP 17
[2017-03-24] MEDS: IBUPROFEN 600 MG TAB PO SCH ×2 (05:47→13:00)
[2017-03-24 09:00] VITALS: BP 109/65; RESP 17
[2017-03-24] MEDS: FERROUS SULFATE (EC) 325 MG TAB PO SCH (09:18)
[2017-03-24] MEDS: PRENATAL VITAMIN PO SCH (09:18)
[2017-03-24] MEDS: SENNA/DOCUSATE NA (8.6MG/50MG) TAB PO SCH (09:19)
--- NOTE | 2017-03-24 09:38 | PD.PPDC ---
[employer] Discharge Instruction Condition Patient Condition: Good Diet Diet: Resume Regular Diet Activity/Restrictions Activity: Normal Activity May Shower Restrictions: No Exercising No Lifting No Driving No Sexual Activity Nothing in the Vagina No [place] No Tampons, douche Follow-up Follow-up with Physician: 2, Week/Weeks Provider Information: instructions given recommended to make appointment to be seen at the clinic in 2weeks Current Medications Medications (Trade) Dose Ordered Sig/Alicia Route PRN Reason Start Time Stop Time Status Last Admin Dose Admin Lactated Ringer's (Lr) 1,000 ml @ 125 mls/hr Q8H IV 03/21/17 12:47 03/22/17 20:35 DC 03/22/17 17:02 Butorphanol Tartrate (Stadol) 1 mg Q2H PRN IV PAIN 03/21/17 13:00 03/22/17 20:35 DC Butorphanol Tartrate (Stadol) 2 mg Q2H PRN IV PAIN 03/21/17 13:00 03/22/17 20:35 DC 03/22/17 08:40 Lidocaine 30 ml 30 ml ONCE PRN INJ EPISIOTOMY/TEARING 03/21/17 13:00 03/22/17 20:35 DC Lactated Ringer's 1,000 ml @ 2,000 mls/hr Q30M PRN IV PRE-EPIDURAL BOLUS 03/21/17 13:00 03/22/17 20:35 DC Oxytocin/Lactated Ringer's 500 ml @ 0 mls/hr ONCE PRN IV For Hemorrhage Management 03/21/17 13:00 03/22/17 20:35 DC Methylergonovine Maleate (Methergine) 0.2 mg ONCE PRN IM VAGINAL BLEEDING 03/21/17 13:00 03/22/17 20:35 DC Carboprost Tromethamine (Hemabate) 250 mcg ONCE PRN IM VAGINAL BLEEDING 03/21/17 13:00 03/22/17 20:35 DC Misoprostol (Cytotec) 1,000 mcg ONCE PRN [place] VAGINAL BLEEDING 03/21/17 13:00 03/22/17 20:35 DC Dinoprostone 10 mg 10 mg ONCE ONCE VAG 03/21/17 20:30 03/21/17 20:31 DC 03/21/17 20:40 Lactated Ringer's (Lr) 1,000 ml @ 1,000 mls/hr Q1H ONCE IV 03/22/17 10:43 03/22/17 11:42 DC 03/22/17 10:59 Ondansetron HCl (Zofran Inj) 4 mg pre-procedure ONCE IV 03/22/17 11:00 03/22/17 11:01 DC 03/22/17 10:59 Citric Acid/ Sodium Citrate (Bicitra) 30 ml PRE-OP ONCE PO 03/22/17 11:00 03/22/17 11:01 DC 03/22/17 10:59 Naloxone HCl (Narcan) 0.1 mg Q2M PRN IV FOR RESP RATE 8 OR LESS 03/22/17 11:00 03/22/17 20:34 DC Ketorolac Tromethamine (Toradol) 30 mg Q6H PRN IV PAIN 03/22/17 11:00 03/22/17 20:34 DC Morphine Sulfate (morphine) 2 mg Q3H PRN IV PAIN LEVEL 1-5 03/22/17 11:00 03/22/17 20:34 DC Morphine Sulfate (morphine) 4 mg Q3H PRN IV PAIN LEVEL 6-10 03/22/17 11:00 03/22/17 20:34 DC Diphenhydramine HCl (Benadryl) 25 mg Q6H PRN IV ITCHING 03/22/17 11:00 03/22/17 20:34 DC Nalbuphine HCl (Nubain) 5 mg ONCE PRN IV ITCHING 03/22/17 11:00 03/22/17 20:34 DC Ondansetron HCl (Zofran Inj) 4 mg Q6H PRN IV NAUSEA AND/OR VOMITING 03/22/17 11:00 03/22/17 20:34 DC Trimethobenzamide HCl (Tigan) 200 mg Q6H PRN IM NAUSEA AND/OR VOMITING 03/22/17 11:00 03/22/17 20:34 DC Fentanyl/ Ropivacaine 100 ml EPIDURAL INFUSION EPI 03/22/17 11:00 03/22/17 15:55 DC 03/22/17 14:53 Citric Acid/ Sodium Citrate (Bicitra) 30 ml STK-MED ONCE .ROUTE 03/22/17 10:52 03/22/17 10:53 DC Ondansetron HCl 4 mg 4 mg STK-MED ONCE .ROUTE 03/22/17 10:52 03/22/17 10:53 DC Fentanyl/ Ropivacaine 100 ml @ ud STK-MED ONCE .ROUTE 03/22/17 10:53 03/22/17 10:54 DC Oxytocin/Lactated Ringer's 500 ml @ 0 mls/hr Q0M IV 03/22/17 13:00 03/22/17 20:34 DC Fentanyl/ Ropivacaine 100 ml 100 ml EPIDURAL INFUSION EPI 03/22/17 11:00 03/22/17 20:34 DC Cefazolin Sodium/ Dextrose 50 ml @ 100 mls/hr ONCE ONCE IVPB 03/22/17 20:30 03/22/17 20:34 DC 03/22/17 20:29 Oxytocin/Lactated Ringer's 500 ml @ 125 mls/hr Q4H IV 03/22/17 20:30 03/22/17 20:34 DC Lactated Ringer's (Lr) 1,000 ml @ 125 mls/hr Q8H IV* 03/22/17 20:31 03/23/17 07:44 DC Morphine Sulfate (morphine) 1 mg Q3 PRN IV PAIN LEVEL 6-10 03/22/17 21:00 Ibuprofen (Motrin) 600 mg Q6 PO 03/22/17 21:00 03/24/17 05:47 Ondansetron HCl (Zofran Inj) 4 mg Q6H PRN IV NAUSEA AND/OR VOMITING 03/22/17 21:00 Diphenhydramine HCl (Benadryl) 25 mg Q6H PRN PO PRURITUS 03/22/17 21:00 Zolpidem Tartrate (Ambien) 5 mg QHS PRN PO INSOMNIA 03/22/17 21:00 Senna/Docusate Sodium (Senokot-S) 1 tab BID PO 03/22/17 21:00 03/24/17 09:19 Witch Nadja/ Glycerin (Tucks Pads) 1 pad BEDSIDE MEDICATION PRN [place] HEMORRHOID/EPISIOTMY PAIN 03/22/17 21:00 03/23/17 16:18 Lanolin (Zgy-H-Cqtniu) 1 applic BEDSIDE MEDICATION PRN TOP BEDSIDE FOR ALISON TO NIPPLES 03/22/17 21:00 03/22/17 23:47 Acetaminophen 650 mg 650 mg Q4H PRN PO ELEVATED TEMPERATURE 03/22/17 21:00 Oxytocin/Lactated Ringer's 500 ml @ 0 mls/hr ONCE PRN IV For Hemorrhage Management 03/22/17 21:00 Methylergonovine Maleate (Methergine) 0.2 mg ONCE PRN IM VAGINAL BLEEDING 03/22/17 21:00 Carboprost Tromethamine (Hemabate) 250 mcg ONCE PRN IM VAGINAL BLEEDING 03/22/17 21:00 Misoprostol (Cytotec) 1,000 mcg ONCE PRN [place] VAGINAL BLEEDING 03/22/17 21:00 Ferrous Sulfate (Ferrous Sulfate (Ec)) 325 mg DAILY PO 03/22/17 21:00 03/24/17 09:18 Metoclopramide HCl (Reglan) 10 mg Q6 PRN PO NAUSEA AND/OR VOMITING 03/22/17 21:00 Prenat Multivit/ Morgan/Iron/Folic Ac () 1 tab DAILY PO 03/23/17 09:00 03/24/17 09:18 Ondansetron HCl 4 mg 4 mg Q6H PO 03/22/17 21:00 Oxytocin/Lactated Ringer's 500 ml @ 125 mls/hr Q4H IV 03/22/17 21:30 03/23/17 05:42 DC 03/22/17 21:58 DONALDO MARTINEZ MD Mar 24, 2017 09:38
--- NOTE | 2017-03-24 09:42 | DS ---
Date/Time of Note Date/Time of Note DATE: 03/24/17 TIME: 09:40 Discharge Summary Admission/Discharge Info Admit Date/Time Mar 21, 2017 at 13:17 Discharge Date/Time March 24, 2017 at 9:45 AM Discharge Diagnosis Post normal vaginal delivery day 2 Procedures Normal vaginal delivery Hx of Present Illness Term in labor Hospital Course Satisfactory recovery uneventful Home Meds Active Scripts Metoclopramide* (Reglan*) 10 Mg Tablet, 10 MG PO Q6 Y for NAUSEA AND/OR VOMITING , #20 TAB Prov:CIERRA MATUTE PA-C 09/04/16 Ondansetron Hcl* (Zofran*) 4 Mg Tablet, 4 MG PO Q6H for NAUSEA AND/OR VOMITING, #30 TAB Prov:CIERRA MATUTE PA-C 09/04/16 Reported Medications Ferrous Sulfate* (Ferrous Sulfate*) 325 Mg Tabec, 325 MG PO DAILY, TAB //16 Multivit/Min/Fol Ac/Iron/Pren* ( S*) 1 Tab Tab, 1 TAB PO DAILY, TAB 12/11/15 Follow-up Plan instructions given recommended to make appointment in 2 weeks Primary Care Provider Mal Lynn Time spent on discharge: < 30 minutes DONALDO MARTINEZ MD Mar 24, 2017 09:42
== END 2017-03-24 15:25 | disposition home or self-care (01) | DRG 775 ==
LOC: L-D 07:54 → OBT 07:54 → L-D 13:17 → PP1 03-22 22:39
PROVIDERS: ADMIT Obstetrics & Gynecology; ATTEND Obstetrics & Gynecology
PROC: 10E0XZZ Delivery of Products of Conception, External Approach (ICD-10-PCS; principal; 2017-03-22)
PROC: 0HQ9XZZ Repair Perineum Skin, External Approach (ICD-10-PCS; 2017-03-22)
DX: O70.0 First degree perineal laceration during delivery (principal); E66.01 Morbid (severe) obesity due to excess calories; O99.214 Obesity complicating childbirth; Z68.38 Body mass index [BMI] 38.0-38.9, adult; Z3A.38 38 weeks gestation of pregnancy; Z37.0 Single live birth
CPT/HCPCS: 62319; 76815; 76818; 85025; 85610; 85730; 86592; 86900; 86901; 87340; G0463; J0595; J0690; J2405; J2590; J3010; J7120

== ENCOUNTER 2019-03-09 21:49 | Outpatient (CLI) | payer OTHER ==
[~2019-03-09] VITALS: Ht 162.6 cm; Wt 97.2 kg
[~2019-03-09 21:49] MED LIST changes: -METO10TA92 PO
[2019-03-09 22:30] VITALS: BP 116/70; PULSE 88; RESP 18; Ht 162.6 cm; Wt 97.2 kg
--- NOTE | 2019-03-10 01:34 | PN ---
Triage Information Date/Time 03/10/1911/23/124 Reason for visit: fell on stomch after tripped over, imediatly after had vaginal spotting Weeks of Gestation 26w6d /Para Diabetes: none Hypertention: none Additional information Fell at 2015 for 25min had lower abdominal pain with vaginal spotting by the time reach hospital feel fine Objective Vital Signs Date Temp Pulse Resp B/P (MAP) Pulse Ox O2 O2 Flow FiO2 Time Delivery Rate 03/09/19 98.2 88 18 116/70 Room Air 22:30 (85) Heart Rate: 140's Heart Rate Comments adequate for GA Contractions: None Results/Medications Imaging Results BPP 8/8 MVP 7.5 no evidence of abruptio placenta Disposition: Discharge Assessment/Plan A IUP 26w6d S/P Fall on abdomen P discharge home with instructions to [facility] if any symptoms such as vaginal bleeding or uterine contractions DHRUV JENSEN MD Mar 10, 2019 01:34
--- NOTE | 2019-03-10 06:32 | TRIAGE ---
OB Triage Datetime Report Generated by CPN: 03/10/2019 06:32 Datetime: 03/10/2019 00:25 Stage of : OB Triage Labor Evaluation Frequency: 0 Monitor Mode: External Resting Tone [place]: Relaxed Heart Rate FHR Baseline Rate: 140 Monitor Mode: External US Variability: Moderate 6-25 bpm Accelerations: 15X15 Decelerations: None Category: Category I Datetime: 03/10/2019 00:00 Stage of : OB Triage Labor Evaluation Frequency: 0 Monitor Mode: External Resting Tone [place]: Relaxed Heart Rate FHR Baseline Rate: 140 Monitor Mode: External US Variability: Moderate 6-25 bpm Accelerations: Prolonged Decelerations: Variable Category: Category II Datetime: 03/09/2019 23:30 Stage of : OB Triage Labor Evaluation Frequency: 0 Monitor Mode: External Resting Tone [place]: Relaxed Heart Rate FHR Baseline Rate: 140 Monitor Mode: External US Variability: Moderate 6-25 bpm Accelerations: 15X15 Decelerations: None Category: Category I Datetime: 03/09/2019 22:30 Stage of : OB Triage Labor Evaluation Frequency: 0 Monitor Mode: External Resting Tone [place]: Relaxed Heart Rate FHR Baseline Rate: 140 Monitor Mode: External US Variability: Moderate 6-25 bpm Accelerations: 15X15 Decelerations: None Category: Category I Datetime: 03/09/2019 22:04 Time of Arrival: 03/09/2019 21:42 EGA: 26.6 Arrived By: Ambulatory Arrived From: Home Chief Complaint: Fell on abdomen @2030 Spotting x1 right after. Nothing since. Movement: Absent Contractions: Denies/Absent Rupture of Membranes: Denies Vaginal Bleeding: Scant Vaginal Discharge: Denies Recent Sexual Intercouse: Denies Abdominal Trauma: Fall Patient Complaints: None Time Provider Notified: 03/09/2019 22:35 Provider Notified: Initial Plan: U/S for placenta location, BPP/ANDI Datetime: 03/09/2019 22:03 Assessment Type: Triage Maternal Assessment Level of Consciousness: Keenly Alert, Responsive DTR's/Clonus: DTRs 2+; No Clonus Headache: Denies Blurred Vision: No Respiratory Effort: Unlabored; Regular Rhythm; Equal Expansion Breath Sounds, Left: Clear and Equal Breath Sounds, Right: Clear and Equal Nausea/Vomiting: Denies RUQ Epigastric Pain: Denies Lower Extremities Edema: None Degree: None Upper Extremities Edema: None Degree: None Facial Edema: None Fall Risk Assessment History of Falling: (25) Yes Secondary Diagnosis: (0) No Ambulatory Aid: (0) Bedrest/Nurse Assist IV Therapy: (0) No Gait: (0) Normal/Bedrest/Immobile Mental Status: (0) Oriented to Own Ability Fall Score: 25 Fall Risk Score Definition: Low Risk: Please see standard fall prevention interventions
== END 2019-03-10 00:48 | disposition home or self-care (01) ==
LOC: OBT 21:49 → L-D 21:49 → OBT 03-10 00:48
PROVIDERS: ATTEND Obstetrics & Gynecology
DX: O46.8X2 Other antepartum hemorrhage, second trimester (principal); Z3A.26 26 weeks gestation of pregnancy
CPT/HCPCS: 76818; Z7500; G0463

== ENCOUNTER 2019-06-06 05:10 | Inpatient (IN) | payer OTHER ==
[~2019-06-06] VITALS: Ht 162.6 cm; Wt 106.3 kg
[~2019-06-06 05:10] MED LIST changes: -FER325 PO; -ONDA4TAB8 PO
[2019-06-06 05:57] VITALS: BP 123/71; PULSE 83; RESP 18; Ht 162.6 cm; Wt 106.3 kg
[2019-06-06] MEDS: LACTATED RINGER'S 1,000 ML IV SCH ×3 (06:25→12:13)
[2019-06-06] MEDS ORDERED: OXYTOCIN 30 UNITS/LR 500 ML IV SCH ×3 (06:30→13:00)
[2019-06-06] MEDS ORDERED: LIDOCAINE 1% (MPF) 30 ML INJ INJ PRN (06:30)
[2019-06-06] MEDS ORDERED: AMPICILLIN 2 GM/NS (PMX) 100 ML IV ONE (06:30)
[2019-06-06] MEDS ORDERED: MISOPROSTOL 200 MCG TAB PR PRN ×2 (06:30→21:00)
[2019-06-06] MEDS ORDERED: METHYLERGONOVINE 0.2 MG INJ IM PRN ×2 (06:30→21:00)
[2019-06-06] MEDS ORDERED: OXYTOCIN 30 UNITS/LR 500 ML IV PRN ×2 (06:30→21:00)
[2019-06-06] MEDS ORDERED: CARBOPROST 250 MCG INJ IM PRN ×2 (06:30→21:00)
[2019-06-06] MEDS ORDERED: MINERAL OIL LIGHT 10 ML VIAL TOP PRN (06:30)
[2019-06-06] MEDS ORDERED: IBUPROFEN 600 MG TAB PO PRN ×2 (06:30→10:30)
[2019-06-06] MEDS ORDERED: BUTORPHANOL 2 MG INJ IV PRN ×2 (06:30)
[2019-06-06] MEDS ORDERED: FENTAnyl 2MCG/ML-ROPIV 0.2% 100 ML ONE (09:41)
[2019-06-06] MEDS ORDERED: DIPHENHYDRAMINE 50 MG INJ IV PRN (10:00)
[2019-06-06] MEDS ORDERED: NALOXONE (0.4 MG/ML) INJ IV PRN (10:00)
[2019-06-06] MEDS ORDERED: FENTAnyl 2MCG/ML-ROPIV 0.2% 100 ML BAG EPI SCH (10:00)
[2019-06-06] MEDS ORDERED: ONDANSETRON 4 MG INJ IV PRN (10:00)
[2019-06-06] MEDS ORDERED: LACTATED RINGER'S 1,000 ML IV PRN (10:19)
[2019-06-06] MEDS: AMPICILLIN 1 GM/NS (PMX) 50 ML IV SCH ×2 (10:21→14:29)
[2019-06-06 20:31] VITALS: BP 114/61; PULSE 92; RESP 17
[2019-06-06] MEDS: LACTATED RINGER'S 1,000 ML IV* SCH (20:39)
[2019-06-06] MEDS ORDERED: HYDROCODONE/APAP (5/325) TAB PO PRN (21:00)
[2019-06-06] MEDS ORDERED: WITCH HAZEL/GLYCERIN PAD PR PRN (21:00)
[2019-06-06] MEDS ORDERED: DIBUCAINE 1% 30 GM OINT TOP PRN (21:00)
[2019-06-06] MEDS ORDERED: ACETAMINOPHEN 325 MG TAB PO PRN (21:00)
[2019-06-06] MEDS ORDERED: BENZOCAINE 20% 56 ML SPRAY TOP PRN (21:00)
[2019-06-06] MEDS: SENNA/DOCUSATE NA (8.6MG/50MG) TAB PO SCH (22:42)
[2019-06-07] VITALS: BP 135/78; PULSE 82; RESP 19
[2019-06-07] MEDS: IBUPROFEN 600 MG TAB PO SCH ×5 (00:24→17:56)
[2019-06-07 04:00] VITALS: BP 93/57; PULSE 61; RESP 18
[2019-06-07] MEDS: LACTATED RINGER'S 1,000 ML IV* SCH ×2 (04:39→12:39)
[2019-06-07 08:10] VITALS: BP 110/61; PULSE 64; RESP 18
[2019-06-07] MEDS: SENNA/DOCUSATE NA (8.6MG/50MG) TAB PO SCH (09:55)
[2019-06-07 16:00] VITALS: BP 97/55; PULSE 69; RESP 17
[2019-06-07 20:00] VITALS: BP 113/64; PULSE 75; RESP 20
[2019-06-08] MEDS: IBUPROFEN 600 MG TAB PO SCH ×3 (00:12→11:58)
[2019-06-08] MEDS: SENNA/DOCUSATE NA (8.6MG/50MG) TAB PO SCH ×2 (00:13→09:19)
[2019-06-08 03:48] VITALS: BP 115/59; PULSE 73; RESP 17
[2019-06-08 08:00] VITALS: BP 115/72; PULSE 80; RESP 18
[2019-06-08] MEDS ORDERED: DIPHTH/TET/ACEL PERTUSS (ADULT) 0.5 ML VIAL IM* ONE (09:00)
[2019-06-09] MEDS ORDERED: FLU VACC QS 2019-20 (6MOS UP) 0.5 ML SYG IM* ONE (10:00)
== END 2019-06-08 13:00 | disposition home or self-care (01) | DRG 807 ==
LOC: L-D 05:10 → OBT 05:10 → L-D 06:05 → OBT 06:05 → L-D 07:21 → PP1 20:33
PROVIDERS: ADMIT Obstetrics & Gynecology; ATTEND Obstetrics & Gynecology
PROC: 10E0XZZ Delivery of Products of Conception, External Approach (ICD-10-PCS; principal; 2019-06-06)
PROC: 3E033VJ Introduction of Other Hormone into Peripheral Vein, Percutaneous Approach (ICD-10-PCS; 2019-06-06)
DX: O80 Encounter for full-term uncomplicated delivery (principal); Z37.0 Single live birth; O99.214 Obesity complicating childbirth; Z3A.38 38 weeks gestation of pregnancy
CPT/HCPCS: 62322; 76815; 85025; 85610; 85730; 86592; 86850; 86900; 86901; 87340; G0463; J0290; J2590; J3010; J7120